=== PATIENT | female | born 1955 | race Caucasian/White ===

== ENCOUNTER → 2018-04-12 | Outpatient (CLI) | payer BC ==
--- NOTE | 2018-04-12 15:52 | RAD ---
Bilateral breast ultrasound, 04/12/2018: HISTORY: Breast implants, previous breast cancer, breast screening Both breasts were carefully scanned. Bilateral breast implants are in place. No breast mass is identified. IMPRESSION: No significant abnormality is detected. Electronically signed by: Manny Johnson MD (04/12/2018 3:48 PM) [facility]
== END | disposition home or self-care (01) ==
LOC: US 14:46
PROVIDERS: ATTEND General Practice
DX: R92.8 Other abnormal and inconclusive findings on diagnostic imaging of breast (principal); Z85.3 Personal history of malignant neoplasm of breast
CPT/HCPCS: 76641

== ENCOUNTER → 2020-11-16 | Outpatient (CLI) | payer MEDICARE ==
[2020-11-16 13:31] LABS: ALBUMIN 4.2 g/dL (3.4-5.0); ALBUMIN/GLOBULIN RATIO 1.2 (1.0-1.7); CALCIUM 9.4 mg/dL (8.5-10.1); CREATININE 0.7 mg/dL (0.6-1.0); GFR 84.5; TOTAL BILIRUBIN 0.4 mg/dL (0.2-1.0); TOTAL PROTEIN 7.6 g/dL (6.4-8.2)
== END ==
LOC: LAB 12:12
PROVIDERS: ATTEND Registered Nurse
DX: R74.8 Abnormal levels of other serum enzymes (principal)
CPT/HCPCS: 36415; 80053

== ENCOUNTER → 2021-04-09 | Outpatient (CLI) | payer MEDICARE ==
--- NOTE | 2021-04-09 14:21 | RAD ---
EXAM: Left breast implant ultrasound. HISTORY: Developing asymmetry left breast implant. Personal history of breast cancer status post bila teral complete mastectomy with implant reconstruction. COMPARISON: 04/12/2018. FINDINGS: Sonographic evaluation of the left breast and implant was performed. Special attention was given to the 6:00 position where the patient reported a previous burning sensation, now resolved. No abnormality is appreciated at the 6:00 position or elsewhere. There is no evidence of intra or extrac apsular rupture on this examination. IMPRESSION: 1. No implant complication is detectable sonographically. Surgical consultation could be useful in th e setting of implant migration. MRI could further evaluate if there is persistent concern for implant complication. Electronically signed by: Lesly Cortés MD (04/09/2021 2:18 PM) [id number]
== END ==
LOC: MAMMO 13:13
PROVIDERS: ATTEND Family Medicine
DX: T85.49XD Other mechanical complication of breast prosthesis and implant, subsequent encounter (principal); Y83.8 Other surgical procedures as the cause of abnormal reaction of the patient, or of later complication, without mention of misadventure at the time of the procedure
CPT/HCPCS: 76641